=== PATIENT | female | born 1965 | race Caucasian/White ===

== ENCOUNTER → 2018-04-25 11:53 | Outpatient (CLI) | payer OTHER, SELFPAY ==
[2018-04-25 16:55] LABS: Alanine Aminotransferase 37 IU/L (9-52); Aspartate Aminotransferase 35 IU/L (14-36); BUN Creatinine Ratio 31.7 (6-22); Blood Urea Nitrogen 19 mg/dL (7-17); Calcium 10.1 mg/dL (8.4-10.2); Carbon Dioxide 31 mmol/L (22-32); Chloride 102 mmol/L (98-107); Cholesterol 190 mg/dL (140-199); Estimated Glomerular Filt Rate > 60.0 mL/min (>60); Glucose 109 mg/dL (70-100); HDL Cholesterol 52 mg/dL (40-60); HEMOLYSIS < 15 (0-50); LDL Cholesterol Calculated 104 mg/dL (<100); Sodium 144 mmol/L (137-145); Triglycerides 169 mg/dL (35-150)
== END ==
PROVIDERS: PCP Internal Medicine; Visit Provider Internal Medicine
DX: E78.49 Other hyperlipidemia (principal); I10 Essential (primary) hypertension
CPT/HCPCS: 36415; 80048; 80061; 84450; 84460

== ENCOUNTER → 2018-04-27 10:30 | Outpatient (CLI) | payer OTHER, SELFPAY ==
--- NOTE | 2018-04-27 | DI.CT.S_ITS ---
PROCEDURE: CT CHEST WO CON INDICATIONS: COUGH TECHNIQUE: Noncontrast 5 mm thick sections acquired from the pulmonary apices to the posterior costophrenic angles. 7 mm thick coronal and sagittal MIP reformats were then acquired. For radiation dose reduction, the following was used: automated exposure control, adjustment of mA and/or kV according to patient size. COMPARISON: [facility], CT, ABDOMEN/PELVIS WITHOUT CONTRAS, 02/25/2016, 8:17. [facility], CR, CHEST 1 VIEW, 02/25/2016, 6:52. [facility], CR, CHEST 2 VIEW, 06/11/2015, 9:58. [facility], CR, CHEST 2 VIEW, 08/04/2016, 16:09. FINDINGS: Image quality: Excellent. Lungs and pleura: Minimal dependent density is seen within the left lower lobe, which is attributed to atelectasis. No consolidated infiltrates are seen. No pleural effusions or pneumothorax. Central and peripheral airways are patent and normal in caliber. Mediastinum: Heart size is normal. No pericardial effusion. No mediastinal adenopathy by size criteria. Thoracic aorta and central pulmonary arteries are normal in size. Esophagus is normal in caliber. No hiatal hernia. Bones and chest wall: No suspicious bony lesions. Age-appropriate bony degenerative changes are seen. No vertebral body compression fractures. No axillary or supraclavicular adenopathy by size criteria. Thyroid gland demonstrates no significant noncontrast abnormality. 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 There has been partial hepatic resection. Cholecystectomy clips are seen. IMPRESSION: There is a mild amount of presumed dependent atelectasis within the left lower lobe. Upper abdominal postoperative changes are seen. Dictated by: Enzo Garvey M.D. on 04/27/2018 at 10:57 Approved by: Enzo Garvey M.D. on 04/27/2018 at 11:02
== END ==
PROVIDERS: PCP Internal Medicine; Visit Provider Internal Medicine
DX: R05 Cough (principal)
CPT/HCPCS: 71250

== ENCOUNTER → 2018-08-03 11:17 | Outpatient (CLI) | payer OTHER, SELFPAY ==
[2018-08-03 12:21] LABS: Alanine Aminotransferase 41 IU/L (9-52); Aspartate Aminotransferase 34 IU/L (14-36); Cholesterol 176 mg/dL (140-199); HDL Cholesterol 47 mg/dL (40-60); LDL Cholesterol Calculated 74 mg/dL (<100); Triglycerides 273 mg/dL (35-150)
== END ==
PROVIDERS: PCP Internal Medicine; Visit Provider Internal Medicine
DX: E78.49 Other hyperlipidemia (principal)
CPT/HCPCS: 36415; 80061; 84450; 84460

== ENCOUNTER → 2018-08-08 12:11 | Outpatient (CLI) | payer OTHER, SELFPAY ==
--- NOTE | 2018-08-08 | DI.US.S_ITS ---
PROCEDURE: US PERIPH VENOUS UP EXTREM LT INDICATIONS: PAIN IN LEFT ARM TECHNIQUE: Real-time imaging, as well as color and pulse Doppler interrogation, was performed of the right upper extremity deep veins from the inferior neck to the antecubital fossa. COMPARISON: [facility], CT, CT CHEST WO CON, 04/27/2018, 10:49. FINDINGS: Heterogeneous material is identified within the left subclavian and internal jugular veins, suggesting at least partial thrombosis. Otherwise, the left axial and brachial veins are within normal limits. Imaged portions of the cephalic and basilic veins are patent and otherwise unremarkable. 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 Dictated by: Charles Guardado M.D. on 08/08/2018 at 12:26 Approved by: Charles Guardado M.D. on 08/08/2018 at 12:29
[2018-08-08 14:02] LABS: Blood Urea Nitrogen 15 mg/dL (7-17); Calcium 9.9 mg/dL (8.4-10.2); Carbon Dioxide 28 mmol/L (22-32); Chloride 101 mmol/L (98-107); Estimated Glomerular Filt Rate > 60.0 mL/min (>60); Glucose 143 mg/dL (70-100); HEMOLYSIS 16 (0-50); Potassium 4.5 mmol/L (3.4-5.1); Sodium 140 mmol/L (137-145)
[2018-08-08 14:35] LABS: TSH w/ Reflex to FT4 1.97 uIU/mL (0.47-4.68)
== END ==
PROVIDERS: PCP Internal Medicine; Visit Provider Internal Medicine
DX: M79.602 Pain in left arm (principal); I82.C12 Acute embolism and thrombosis of left internal jugular vein; I82.B12 Acute embolism and thrombosis of left subclavian vein; R60.0 Localized edema
CPT/HCPCS: 36415; 80048; 84443; 93971

== ENCOUNTER → 2019-03-05 07:54 | Outpatient (CLI) | payer OTHER, SELFPAY ==
[2019-03-05 09:33] LABS: Alanine Aminotransferase 24 IU/L (9-52); Aspartate Aminotransferase 46 IU/L (14-36); BUN Creatinine Ratio 33.3 (6-22); Blood Urea Nitrogen 20 mg/dL (7-17); Calcium 9.5 mg/dL (8.4-10.2); Carbon Dioxide 31 mmol/L (22-32); Chloride 100 mmol/L (98-107); Cholesterol 178 mg/dL (140-199); Estimated Glomerular Filt Rate > 60.0 mL/min (>60); Glucose 102 mg/dL (70-100); HDL Cholesterol 37 mg/dL (40-60); LDL Cholesterol Calculated 71 mg/dL (<100); Potassium 3.8 mmol/L (3.4-5.1); Sodium 138 mmol/L (137-145); Triglycerides 348 mg/dL (35-150)
[2019-03-05 09:36] LABS: HEMOLYSIS 81 (0-50)
== END ==
PROVIDERS: PCP Internal Medicine; Visit Provider Internal Medicine
DX: I10 Essential (primary) hypertension (principal); E78.49 Other hyperlipidemia
CPT/HCPCS: 36415; 80048; 80061; 84450; 84460

== ENCOUNTER → 2020-04-24 08:06 | Outpatient (CLI) | payer OTHER, SELFPAY ==
[2020-04-24 11:10] LABS: Alanine Aminotransferase 39 IU/L (<35); Albumin Globulin Ratio 1.3 (1.0-2.8); Alkaline Phosphatase 101 U/L (38-126); Aspartate Aminotransferase 42 IU/L (14-36); BUN Creatinine Ratio 29.4 (6-22); Bilirubin Total 0.6 mg/dL (0.2-1.3); Blood Urea Nitrogen 15 mg/dL (7-17); Calcium 9.4 mg/dL (8.4-10.2); Carbon Dioxide 33 mmol/L (22-32); Chloride 101 mmol/L (98-107); Cholesterol 239 mg/dL (140-199); Estimated Glomerular Filt Rate > 60.0 mL/min (>60); Globulin 3.2 g/dL (1.7-4.1); Glucose 122 mg/dL (70-100); HDL Cholesterol 42 mg/dL (40-60); HEMOLYSIS < 15 (0-50); LDL Cholesterol Calculated 130 mg/dL (<100); Potassium 4.6 mmol/L (3.4-5.1); Sodium 139 mmol/L (137-145); Total Protein 7.2 g/dL (6.3-8.2); Triglycerides 334 mg/dL (35-150)
== END ==
PROVIDERS: PCP Internal Medicine; Referring Provider Internal Medicine; Visit Provider Internal Medicine
DX: I10 Essential (primary) hypertension (principal); E78.49 Other hyperlipidemia
CPT/HCPCS: 36415; 80053; 80061

== ENCOUNTER → 2020-09-01 11:09 | Outpatient (CLI) | payer OTHER, SELFPAY ==
[2020-09-01 12:20] LABS: Alanine Aminotransferase 37 IU/L (<35); Albumin 4.3 g/dL (3.5-5.0); Albumin Globulin Ratio 1.3 (1.0-2.8); Alkaline Phosphatase 95 U/L (38-126); Aspartate Aminotransferase 43 IU/L (14-36); BUN Creatinine Ratio 32.8 (6-22); Bilirubin Total 0.5 mg/dL (0.2-1.3); Blood Urea Nitrogen 21 mg/dL (7-17); Calcium 9.5 mg/dL (8.4-10.2); Carbon Dioxide 32 mmol/L (22-32); Chloride 100 mmol/L (98-107); Cholesterol 163 mg/dL (140-199); Estimated Glomerular Filt Rate > 60.0 mL/min (>60); Globulin 3.3 g/dL (1.7-4.1); Glucose 101 mg/dL (70-100); HDL Cholesterol 42 mg/dL (40-60); HEMOLYSIS < 15 (0-50); LDL Cholesterol Calculated 80 mg/dL (<100); Potassium 3.7 mmol/L (3.4-5.1); Sodium 138 mmol/L (137-145); Total Protein 7.6 g/dL (6.3-8.2); Triglycerides 205 mg/dL (35-150)
== END ==
PROVIDERS: PCP Internal Medicine; Referring Provider Internal Medicine; Visit Provider Internal Medicine
DX: E78.41 Elevated Lipoprotein(a) (principal)
CPT/HCPCS: 36415; 80053; 80061

== ENCOUNTER → 2020-09-12 15:48 | Outpatient (ROUT) | payer OTHER, SELFPAY | PROVIDERS: PCP Internal Medicine; Visit Provider Internal Medicine | DX: M1A.40X0 Other secondary chronic gout, unspecified site, without tophus (tophi) (principal) | CPT/HCPCS: 84550 ==

== ENCOUNTER → 2022-11-18 13:06 | Outpatient (CLI) | payer OTHER, SELFPAY ==
--- NOTE | 2022-11-18 | DI.MG.S_ITS ---
BILATERAL DIGITAL SCREENING MAMMOGRAM 3D/2D WITH CAD: 11/18/2022 CLINICAL: Routine screening. Comparison is made to exams dated: 10/28/2016 mammogram, 08/13/2014 mammogram, 07/18/2012 mammogram, and 03/27/2008 mammogram - [facility]. Both breasts are heterogeneously dense, which may obscure small masses (category c / 51-75% glandular tissue). Current study was also evaluated with a Computer Aided Detection (CAD) system. No significant masses, calcifications, or other findings are seen in either breast. There has been no significant interval change. IMPRESSION: NEGATIVE There is no mammographic evidence of malignancy. A 1 year screening mammogram is recommended. Based on the Tyrer Cuzick model (a risk assessment model) the patient's lifetime risk is 8.5% and her 10 year risk is 3.3%. According to the ACR, ACS, and NCCN guidelines, an annual breast MRI exam along with mammogram is recommended if the patient's lifetime risk is 20% or greater. This exam was interpreted at Station ID: [id number]. NOTE: For mammograms, a report in lay terms will be sent to the patient. Approximately 15% of breast malignancies will not be visualized mammographically. In the management of a palpable breast mass, a negative mammogram must not discourage biopsy of a clinically suspicious lesion. Electronically Signed By: Sanchez fontanez/kayleen:11/18/2022 15:19:25 letter sent: Normal Exam ACR BI-RADS Category 1: Negative [id number]
== END ==
PROVIDERS: PCP Internal Medicine; Referring Provider Internal Medicine; Visit Provider Internal Medicine
DX: Z12.31 Encounter for screening mammogram for malignant neoplasm of breast (principal)
CPT/HCPCS: 77063; 77067

== ENCOUNTER → 2024-05-17 16:00 | Outpatient (CLI) | payer OTHER, SELFPAY ==
--- NOTE | 2024-05-17 16:01 | DI.MG.S_ITS ---
BILATERAL DIGITAL SCREENING MAMMOGRAM 3D/2D WITH CAD: 05/17/2024 CLINICAL: Routine screening. Comparison is made to exams dated: 11/18/2022 mammogram, 10/28/2016 mammogram, and 08/13/2014 mammogram - [facility]. There are scattered areas of fibroglandular density (category b / 25%-50% glandular tissue). Current study was also evaluated with a Computer Aided Detection (CAD) system. No significant masses, calcifications, or other findings are seen in either breast. There has been no significant interval change. IMPRESSION: NEGATIVE There is no mammographic evidence of malignancy. A 1 year screening mammogram is recommended. Based on the Tyrer Cuzick model (a risk assessment model) the patient's lifetime risk is 5.5% and her 10 year risk is 2.2%. According to the ACR, ACS, and NCCN guidelines, an annual breast MRI exam along with mammogram is recommended if the patient's lifetime risk is 20% or greater. This exam was interpreted at Station ID: [id number]. NOTE: For mammograms, a report in lay terms will be sent to the patient. Approximately 15% of breast malignancies will not be visualized mammographically. In the management of a palpable breast mass, a negative mammogram must not discourage biopsy of a clinically suspicious lesion. Electronically Signed By: Greg andrew/kayleen:05/18/2024 23:47:22 letter sent: Normal Exam ACR BI-RADS Category 1: Negative
== END ==
PROVIDERS: PCP Internal Medicine; Referring Provider Internal Medicine; Visit Provider Internal Medicine
DX: Z12.31 Encounter for screening mammogram for malignant neoplasm of breast (principal)
CPT/HCPCS: 77063; 77067

== ENCOUNTER → 2024-05-24 14:51 | Outpatient (CLI) | payer OTHER, SELFPAY ==
--- NOTE | 2024-05-24 14:52 | DI.US.S_ITS ---
PROCEDURE: US ARTERIAL DUPLEX LE RT INDICATIONS: Claudication TECHNIQUE: Color and pulse Doppler interrogation was performed of the right lower extremity arterial system, with image documentation. COMPARISON: None. FINDINGS: Common femoral artery: 139 cm/sec, with triphasic flow. Deep femoral artery: 116 cm/sec, with triphasic flow. Proximal superficial femoral artery: 111 cm/sec, with triphasic flow. Mid superficial femoral artery: 115 cm/sec, with triphasic flow. Distal superficial femoral artery: 110 cm/sec, with triphasic flow. Popliteal artery: 72 cm/sec, with triphasic flow. Posterior tibial artery: 106 cm/sec, with triphasic flow. Anterior tibial artery/dorsalis pedis: 79 cm/sec, with triphasic flow. Gary-scale imaging description: Minimal degree of plaque involving the right lower extremity arterial system. Incidental note is made of the elongated Mathews's cyst within the right popliteal fossa. IMPRESSION: No hemodynamically significant stenosis involving right lower extremity arterial system. Dictated by: Johnathan Herrera M.D. on 05/25/2024 at 10:35 Approved by: Johnathan Herrera M.D. on 05/25/2024 at 10:38
== END ==
PROVIDERS: PCP Internal Medicine; Referring Provider Internal Medicine; Visit Provider Internal Medicine
DX: I73.9 Peripheral vascular disease, unspecified (principal); M71.21 Synovial cyst of popliteal space [Baker], right knee
CPT/HCPCS: 93926